=== PATIENT | male | born 1980 | race Caucasian/White ===

== ENCOUNTER 2017-01-06 13:55 | Emergency (ER) | payer SELFPAY ==
[2017-01-06 13:57] VITALS: BP 135/67; PULSE 74; RESP 15; TEMP 97.9; O2SAT 99
--- NOTE | 2017-01-06 14:02 | PD ---
Physical Exam Date Seen by Provider: Jan 06, 2017 Time Seen by Provider: 14:00 Data Data Last Documented VS Vital Signs Date Time Temp Pulse Resp B/P Pulse Ox O2 Delivery O2 Flow Rate FiO2 01/06/17 13:57 97.9 74 15 135/67 99 MDM Supervised Visit with MARIA E: No Narrative Course 36 YO M requesting detox from alcohol. Patient states he drinks 20+ beers daily. Last drink within the hour. Denies medical problems. Vitals reviewed. Patient seen in triage, awaiting bed placement. Olga Day Jan 06, 2017 14:01
--- NOTE | 2017-01-06 14:55 | PD ---
HPI . Patient here requesting detox from alcohol Chief Complaint: Medical Clearance Time Seen by Provider: 14:54 Travel History International Travel<30 days: No Contact w/Intl Traveler<30days: No Traveled to known affect area: No History of Present Illness HPI 36-year-old male with no significant past medical history other than alcoholism here requesting detox. He is accompanied by his father. Patient tells me that he's been drinking heavily for the past 6-7 days and needs detox. He recently left [facility] and was told to come here because there were no beds available. He has no signs or symptoms of withdrawals. He feels very well and says he just knows that he needs to quit. PFSH Past Medical History Medical History: Denies Significant Hx Social History Alcohol Use: Yes Tobacco Use: Yes Allergies-Medications (Allergen,Severity, Reaction): Coded Allergies: No Known Allergies (Unverified , 01/06/17) Review of Systems General / Constitutional: No: Fever Eyes: No: Visual changes HENT: No: Headaches Cardiovascular: No: Chest Pain or Discomfort Respiratory: No: Shortness of Breath Gastrointestinal: No: Abdominal Pain Genitourinary: No: Dysuria Musculoskeletal: No: Pain Skin: No Rash Neurologic: No: Weakness Psychiatric: Positive: Substance Abuse, No: Depression Endocrine: No: Polydipsia Hematologic/Lymphatic: No: Easy Bruising Physical Exam Narrative GENERAL: AAO x 3, no acute distress, Well-nourished, well-developed patient. SKIN: Warm and dry. No visible rashes or bruising. HEAD: Normocephalic and atraumatic. EYES: No scleral icterus. No injection or drainage. EOM intact, PERRLA ENT: No nasal drainage noted. Mucous membranes pink. Airway patent. NECK: Supple, trachea midline. No JVD. CARDIOVASCULAR: Regular rate and rhythm without murmurs, gallops, or rubs. RESPIRATORY: Breath sounds equal bilaterally. No accessory muscle use. No rhonchi or rales. GASTROINTESTINAL: Abdomen soft, non-tender, nondistended. EXTREMITIES: No cyanosis or edema. Fully ambulatory BACK: No obvious deformity. 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 Data Data Last Documented VS Vital Signs Date Time Temp Pulse Resp B/P Pulse Ox O2 Delivery O2 Flow Rate FiO2 01/06/17 13:57 97.9 74 15 135/67 99 MDM Medical Decision Making Medical Screen Exam Complete: Yes Emergency Medical Condition: No Medical Record Reviewed: Yes Differential Diagnosis Alcoholism, less likely withdrawals Narrative Course A medical screening exam was performed: At the time of evaluation the presenting medical condition was determined not to be of an emergent nature. The patient was given the option of receiving additional care, but declined. Patient was given options for additional community resources from which to obtain care. The Patient Has Been advised to seek medical attention for their presenting complaint. The patient has been advised to return to the ER at any time if an emergent condition develops. I explained to patient that unfortunately we do not have a detox program here at the hospital. Patient is stable. He is ambulatory and AAOX4. He is accompanied by his father Advised him to check with [facility] again for detox or look into other community services. Diagnosis Primary Impression: Encounter for medical screening examination Condition: Stable Irma Garcia Jan 06, 2017 14:55
== END 2017-01-06 15:15 | disposition left against medical advice (07) ==
LOC: NEPD 13:55
DX: F10.10 Alcohol abuse, uncomplicated (principal); F17.290 Nicotine dependence, other tobacco product, uncomplicated
CPT/HCPCS: 99281

== ENCOUNTER 2017-01-14 09:22 | Emergency (ER) | payer MEDICAID ==
[~2017-01-14] VITALS: Ht 193 cm; Wt 102.2 kg
[2017-01-14 09:24] VITALS: BP 154/98; PULSE 62; RESP 20; TEMP 98.1; O2SAT 97
--- NOTE | 2017-01-14 09:43 | PD ---
HPI Chief Complaint: Anxiety Time Seen by Provider: 09:31 Travel History International Travel<30 days: No Contact w/Intl Traveler<30days: No Traveled to known affect area: No History of Present Illness HPI STATES HAS BEEN HAVING PALPITATIONS, FOR PAST 2 DAYS, FEELING ANXIOUS WELL, FELT CHEST PAIN (SHARP OVER LEFT CHEST, NONRAD, 5/10, NO WORSENING OR ALLEVIATING FACTORS) YESTERDAY AND GOT WORRIED ENOUGH TO COME IN BUT THE WAIT WAS TOO LONG SO HE LEFT, HE NOW RETURNS THIS MORNING WITH THE PALPITATIONS SENSATION BEING INTERMITTENT. PFSH Social History Alcohol Use: Yes Tobacco Use: Yes Allergies-Medications (Allergen,Severity, Reaction): Coded Allergies: No Known Allergies (Unverified , 01/14/17) Review of Systems Except as stated in HPI: all other systems reviewed are Neg Cardiovascular: Positive: Palpitations Psychiatric: Positive: Anxiety Physical Exam Narrative GENERAL: SKIN: Warm and dry. HEAD: Atraumatic. Normocephalic. EYES: Pupils equal and round. No scleral icterus. No injection or drainage. ENT: No nasal bleeding or discharge. Mucous membranes pink and moist. NECK: Trachea midline. No JVD. CARDIOVASCULAR: Regular rate and rhythm. RESPIRATORY: No accessory muscle use. Clear to auscultation. Breath sounds equal bilaterally. GASTROINTESTINAL: Abdomen soft, non-tender, nondistended. MUSCULOSKELETAL: Extremities without clubbing, cyanosis, or edema. No obvious deformities. NEUROLOGICAL: Awake and alert. No obvious cranial nerve deficits. Motor grossly within normal limits. Five out of 5 muscle strength in the arms and legs. Normal speech. PSYCHIATRIC: Appropriate mood and affect; insight and judgment normal. Data Data Last Documented VS Vital Signs Date Time Temp Pulse Resp B/P Pulse Ox O2 Delivery O2 Flow Rate FiO2 01/14/17 09:46 96 Room Air 01/14/17 09:30 89 20 01/14/17 09:24 98.1 154/98 Orders Electrocardiogram (01/14/17 09:37) Complete Blood Count With Diff (01/14/17 09:37) Comprehensive Metabolic Panel (01/14/17 09:37) Troponin I (01/14/17 09:37) B-Type Natriuretic Peptide (01/14/17 09:37) Prothrombin Time / Inr (Pt) (01/14/17 09:37) Act Partial Throm Time (Ptt) (01/14/17 09:37) Lipase (01/14/17 09:37) Thyroid Stimulating Hormone (01/14/17 09:37) Chest, Single Ap (01/14/17 09:37) Iv Access Insert/Monitor (01/14/17 09:37) Ecg Monitoring (01/14/17 09:37) Oximetry (01/14/17 09:37) Lorazepam Inj (Ativan Inj) (01/14/17 09:45) Labs Laboratory Tests Test 01/14/17 09:50 White Blood Count 5.2 TH/MM3 Red Blood Count 4.72 MIL/MM3 Hemoglobin 14.7 GM/DL Hematocrit 42.5 % Mean Corpuscular Volume 90.1 FL Mean Corpuscular Hemoglobin 31.2 PG Mean Corpuscular Hemoglobin 34.7 % Concent Red Cell Distribution Width 12.5 % Platelet Count 114 TH/MM3 Mean Platelet Volume 9.2 FL Neutrophils (%) (Auto) 63.8 % Lymphocytes (%) (Auto) 20.6 % Monocytes (%) (Auto) 7.0 % Eosinophils (%) (Auto) 2.7 % Basophils (%) (Auto) 5.9 % Neutrophils # (Auto) 3.3 TH/MM3 Lymphocytes # (Auto) 1.1 TH/MM3 Monocytes # (Auto) 0.4 TH/MM3 Eosinophils # (Auto) 0.1 TH/MM3 Basophils # (Auto) 0.3 TH/MM3 CBC Comment DIFF FINAL Differential Comment Prothrombin Time 11.2 SEC Prothromb Time International 1.0 RATIO Ratio Activated Partial 24.3 SEC Thromboplast Time Sodium Level 139 MEQ/L Potassium Level 3.5 MEQ/L Chloride Level 107 MEQ/L Carbon Dioxide Level 25.2 MEQ/L Anion Gap 7 MEQ/L Blood Urea Nitrogen 7 MG/DL Creatinine 1.26 MG/DL Estimat Glomerular Filtration 64 ML/MIN Rate Random Glucose 117 MG/DL Calcium Level 8.7 MG/DL Total Bilirubin 0.9 MG/DL Aspartate Amino Transf 103 U/L (AST/SGOT) Alanine Aminotransferase 162 U/L (ALT/SGPT) Alkaline Phosphatase 84 U/L Troponin I LESS THAN 0.02 NG/ML B-Type Natriuretic Peptide 13 PG/ML Total Protein 7.1 GM/DL Albumin 3.7 GM/DL Lipase 166 U/L Thyroid Stimulating Hormone 1.060 uIU/ML [address] [place] [address] Medical Decision Making Medical Screen Exam Complete: Yes Emergency Medical Condition: Yes Medical Record Reviewed: Yes Interpretation(s) NSR 62, FIRST DEGREE AV BLOCK, NO STEMI PATTERN Differential Diagnosis DYSRHYTHMIA V PALPITATIONS V CO V PULM EDEMA V PNA V ANEMIA V DEHYDRATION Narrative Course NO E/O ANEMIA/DEHYDRATIONI/PULM EDEMA/CO NOTED, ADDITIONALLY DURING TIME IN OBSERVATION NO DYSRYTHMIA NOTED ON MONITOR NOR ON EKG. PATIENT IS CURRENTLY DETOXING OFF ALCOHOL AND HAS MADE IT OUT A WEEK THUS FAR, NO HALLUCINATIONS, NO TACHYCARDIA, NO MAJOR E/O WITHDRAWAL. TO STAVE OFF WITHDRAWAL WILL D/C ON LIBRIUM OR LIBRAX Diagnosis Primary Impression: PALPITATIONS RESOLVED Patient Instructions: General Instructions Scripts Chlordiazepoxide-Clidinium (Librax)5-2.5 Mg Cap1 Cap PO TID #30 CAP Ref 0 Prov:Elvis Diamond MD 01/14/17 Disposition: 01 DISCHARGE HOME Condition: Stable Elvis Diamond MD Jan 14, 2017 09:43
[2017-01-14] MEDS ORDERED: LORazepam 2 MG/ML VIAL IV PUSH ONE (09:45)
[2017-01-14 09:46] VITALS: O2SAT 96
--- NOTE | 2017-01-14 09:55 | RADRPT ---
EXAM DATE/TIME: 01/14/2017 09:34 [facility] COMPARISON: No previous studies available for comparison. INDICATIONS : Left sided chest pain radiating down arm with shortness of breath. MEDICAL HISTORY : None. SURGICAL HISTORY : None. ENCOUNTER: Initial ACUITY: 2 days PAIN SCORE: 5/10 LOCATION: Left chest FINDINGS: A single view of the chest demonstrates the lungs to be symmetrically aerated without evidence of mas s, infiltrate or effusion. The cardiomediastinal contours are unremarkable. Osseous structures are intact. CONCLUSION: No acute disease. Ignacio Lagos MD on January 14, 2017 at 9:53 Board Certified Radiologist. This report was verified electronically.
[2017-01-14 10:04] LABS: AUTOMATED NEUTROPHIL # 3.3 TH/MM3 (1.8-7.7); BASOPHIL # 0.3 TH/MM3 (0-0.2); BASOPHIL % 5.9 % (0.0-2.0); EOSINOPHIL # 0.1 TH/MM3 (0-0.4); EOSINOPHIL % 2.7 % (0.0-4.0); HEMATOCRIT 42.5 % (39.0-51.0); HEMO FLAGS DIFF FINAL; LYMPH % 20.6 % (9.0-44.0); LYMPHOCYTE # 1.1 TH/MM3 (1.0-4.8); MEAN CELL VOLUME 90.1 FL (80.0-100.0); MEAN CORPUSCULAR HEMOGLOBIN 31.2 PG (27.0-34.0); MEAN CORPUSCULAR HGB CONC 34.7 % (32.0-36.0); NEUT % 63.8 % (16.0-70.0); PLATELET COUNT 114 TH/MM3 (150-450); RED BLOOD COUNT 4.72 MIL/MM3 (4.50-5.90); RED CELL DISTRIBUTION WIDTH 12.5 % (11.6-17.2); WHITE BLOOD COUNT 5.2 TH/MM3 (4.0-11.0)
[2017-01-14 10:14] LABS: APTT (PATIENT) 24.3 SEC (24.3-30.1); PROTHROMBIN TIME - PATIENT 11.2 SEC (9.8-11.6)
[2017-01-14 10:26] LABS: ALT (GPT) 162 U/L (12-78); ANION GAP 7 MEQ/L (5-15); AST (GOT) 103 U/L (15-37); BICARBONATE 25.2 MEQ/L (21.0-32.0); BLOOD UREA NITROGEN 7 MG/DL (7-18); CHLORIDE 107 MEQ/L (98-107); GLOMERULAR FILTRATION RATE 64 ML/MIN (>89); POTASSIUM 3.5 MEQ/L (3.5-5.1); SODIUM (NA) 139 MEQ/L (136-145)
[2017-01-14 10:35] LABS: ALKALINE PHOSPHATASE 84 U/L (45-117); TOTAL BILIRUBIN ADULT 0.9 MG/DL (0.2-1.0)
[2017-01-14] MEDS ORDERED: LIBRAX PO (10:51)
--- NOTE | 2017-01-15 16:28 | EKG ---
Date Performed: 01/14/2017 Time Performed: 09:37:04 PTAGE: 36 years EKG: Sinus rhythm WITH FIRST DEGREE AV BLOCK ABNORMAL ECG NO PREVIOUS TRACING DOCTOR: Iesha Hutchinson Interpretating Date/Time 01/15/2017 16:25:50
== END 2017-01-14 11:48 | disposition home or self-care (01) ==
LOC: NEPD 09:22
DX: R00.2 Palpitations (principal); R06.02 Shortness of breath; Z72.0 Tobacco use
CPT/HCPCS: 71010; 80053; 83690; 83880; 84443; 84484; 85025; 85610; 85730; 93005; 96374; 99285; J2060

== ENCOUNTER 2018-06-09 12:59 | Observation (INO) ==
[2018-06-09] MEDS ORDERED: Aspirin 325 MG Tablet PO ONE (13:44)
[2018-06-09 14:08] LABS: Baso % (Auto) 0.6 % (0.0-2.0); Eos % (Auto) 0.2 % (0.0-4.0); Hematocrit 48.2 % (39.0-51.0); Hemoglobin 17.5 gm/dL (13.0-17.0); Mean Corpuscular Hemoglobin 32.6 pg (27.0-34.0); Mean Corpuscular Volume 89.8 fL (80.0-100.0); Mean Platelet Volume 8.2 fL (7.0-11.0); Mono # (Auto) 0.6 th/mm3 (0.0-0.9); Mono % (Auto) 7.6 % (0.0-8.0); Neut # (Auto) 5.4 th/mm3 (1.8-7.7); Neut % (Auto) 66.6 % (16.0-70.0); Platelet Count 185 th/mm3 (150-450); Red Blood Count 5.37 mil/mm3 (4.50-5.90); Red Cell Distribution Width 13.1 % (11.6-17.2); White Blood Count 8.1 th/mm3 (4.0-11.0)
[2018-06-09 14:09] LABS: Mean Corpuscular HGB Conc 36.3 % (32.0-36.0)
--- NOTE | 2018-06-09 14:11 | ED ---
HPI General Chief Complaint: Anxiety Stated Complaint: Anxious Complaint Time Seen by Provider: 06/09/18 13:20 Source: patient and family Mode of arrival: ambulatory Limitations: no limitations History of Present Illness HPI narrative: 37-year-old male who presents to the ED for evaluation of possible anxiety. Per patient he has been dealing with stresses what he believes is anxiety for the past 2 days. Per patient he has had anxiety in the past and feels similar with exception to now he is having pain on his left side chest. Per patient he feels like there is a sensation of doom. He denies any history of heart disease or any other medical issues. He has been drinking alcohol to come to help with anxiety but states that it has not helped. He states that his pain in his chest is 3 out of 10. Per patient the pain is different. Per patient he has no history of recent travel. No urinary issues. No bowel movement issues. No fevers chills or sweats. No cough or congestion. He cannot really tell me if he has had new stressors but apparently his father is here with him and they both are concerned about his condition. Patient states that he does not drink daily but per records he has been here before for alcohol related disease. Related Data Home Medications Medication Instructions Recorded Confirmed No Known Home Medications 06/09/18 06/09/18 Allergies Allergy/AdvReac Type Severity Reaction Status Date / Time No Known Allergies Allergy Uncoded 01/14/17 09:41 Review of Systems ROS: all other systems reviewed are negative [facility] Medical History Medical History Anxiety (Acute) Surgical History Surgical History H/O left knee surgery (Acute) Social History Social History Substance History: No History of Abuse Smoking Status: Current every day smoker Tobacco Type: Cigarettes How Often Do You Have a Drink Containing Alcohol: 2 to 3 times a week Recent Travel in [facility] within the Last 8 Weeks: No Recent Out of Country Travel within the Last 8 Weeks: No Immunization History Tetanus Immunization: Unsure Exam Narrative Exam Narrative: GENERAL: Well appearing. SKIN: Focused skin assessment warm/dry. HEAD: Atraumatic. Normocephalic. EYES: Pupils equal and round. No scleral icterus. No injection or drainage. ENT: No nasal bleeding or discharge. Mucous membranes pink and moist. Tongue is midline. No uvula deviation. NECK: Trachea midline. No JVD. CARDIOVASCULAR: Regular rate and rhythm. No murmur appreciated. RESPIRATORY: No accessory muscle use. Clear to auscultation. Breath sounds equal bilaterally. GASTROINTESTINAL: Abdomen soft, non-tender, nondistended. Hepatic and splenic margins not palpable. MUSCULOSKELETAL: No obvious deformities. No clubbing. No cyanosis. No edema. Full range of motion of the upper and lower extremities bilaterally. 2+ pulses bilaterally. NEUROLOGICAL: Awake and alert. No obvious cranial nerve deficits. Motor grossly within normal limits. Normal speech. PSYCHIATRIC: Appropriate mood and affect; insight and judgment normal. Course Initial Documented Vital Signs Temperature 97.8 F 06/09/18 13:12 Pulse Rate 86 06/09/18 13:12 Respiratory Rate 22 06/09/18 13:12 Blood Pressure 153/99 H 06/09/18 13:12 Pulse Oximetry 97 06/09/18 13:12 Last Documented Vital Signs Temperature 97.8 F 06/09/18 13:12 Pulse Rate 82 06/09/18 14:26 Respiratory Rate 20 06/09/18 14:26 Blood Pressure 157/97 H 06/09/18 14:26 Pulse Oximetry 96 06/09/18 14:26 Medical Decision Making MARIA E Attestation MARIA E supervised visit: Yes Attestation: I, [-], have reviewed the advance practice practitioner's documentation and am in agreement, met with the patient face to face, made the diagnosis, and the medical decision making was done by me. *My assessment and Findings: Patient is a 37-year-old male who presents with complaint of possible anxiety and left-sided chest pain. He appears anxious but well. EKG was without acute ischemic changes. Labs are relatively unremarkable. Chest x-ray does not show acute consolidation. He has been placed in the chest pain center to rule out acute PA. [facility] Narrative Medical decision making narrative: 37-year-old male who presents to the ED for evaluation of left-sided chest pain and anxiety. Patient was properly examined and was found to have signs and symptoms which appear to be more consistent with anxiety and a typical chest pain but patient does complain of chest pain that has never had a stress test. Labs and imaging were done. Labs and imaging were essentially unremarkable at this time. Case was discussed with my attending who recommends chest pain center admission offered to the patient as he does have risk factors including being male and smoking in the past. Patient does agree with admission to chest pain center. CIWA was ordered as patient did drink alcohol and potentially has an alcohol issue. Patient understands reasons to be admitted for. Case discussed with my attending who agrees with this plan. Patient was admitted to chest pain center by me. Medical Screen Exam Complete: Yes Emergency Medical Condition: Yes Differential Diagnosis Differential Diagnosis: Chest pain versus ACS versus atypical chest pain versus anxiety versus alcohol Medical Records Medical records reviewed: Yes I reviewed the patient's medical records. Lab Data Lab results reviewed: Yes I reviewed the patient's lab results. Result diagrams: 06/09/18 13:50 06/09/18 13:50 Lab Results 06/09/18 06/09/18 Range/Units 13:50 13:50 WBC 8.1 (4.0-11.0) th/mm3 RBC 5.37 (4.50-5.90) mil/mm3 Hgb 17.5 H (13.0-17.0) gm/dL Hct 48.2 (39.0-51.0) % MCV 89.8 (80.0-100.0) fL MCH 32.6 (27.0-34.0) pg MCHC 36.3 H (32.0-36.0) % RDW 13.1 (11.6-17.2) % Plt Count 185 (150-450) th/mm3 MPV 8.2 (7.0-11.0) fL Prelim Diff (Auto) Slide review pending Neut % (Auto) 66.6 (16.0-70.0) % Lymph % (Auto) 25.0 (9.0-44.0) % [place] % (Auto) 7.6 (0.0-8.0) % Eos % (Auto) 0.2 (0.0-4.0) % Baso % (Auto) 0.6 (0.0-2.0) % Neut # (Auto) 5.4 (1.8-7.7) th/mm3 Lymph # (Auto) 2.0 (1.0-4.8) th/mm3 [place] # (Auto) 0.6 (0.0-0.9) th/mm3 Eos # (Auto) 0.0 (0.0-0.4) th/mm3 Baso # (Auto) 0.0 (0.0-0.2) th/mm3 WBC Differential . Diff Scan Auto diff confirmed Differential Comment . Sodium 138 (136-145) meq/L Potassium 3.9 (3.5-5.1) meq/L Chloride 102 (98-107) meq/L Carbon Dioxide 24.1 (21.0-32.0) meq/L Anion Gap 12 (5-15) meq/L BUN 7 (7-18) mg/dL Creatinine 1.02 (0.60-1.30) mg/dL Estimated GFR 81 L (>89) mL/min Random Glucose 90 (74-106) mg/dL Calcium 8.4 L (8.5-10.1) mg/dL Total Bilirubin 0.5 (0.2-1.0) mg/dL AST 59 H (15-37) U/L ALT 60 (12-78) U/L Alkaline Phosphatase 99 (45-117) U/L Total Creatine Kinase 159 (39-308) U/L CK-MB (CK-2) Less than 1.0 (0.5-3.6) ng/mL Troponin I Less than 0.02 L (0.02-0.05) ng/mL Total Protein 8.8 H (6.4-8.2) g/dL Albumin 4.4 (3.4-5.0) g/dL Serum Alcohol 197 H (0-5) mg/dL Imaging Data Attestation: I personally reviewed and interpreted this imaging study as follows : Radiologist's impression: Chest X-Ray 06/09/18 13:44 CONCLUSION: No acute cardiopulmonary disease. ECG Data Attestation: I personally reviewed and interpreted this ECG as follows: Interpretation: EKG shows sinus rhythm with no sign of acute ischemia or arrhythmia read by me and attending. Discharge Plan Discharge Disposition Patient Disposition: ED Admit(ED Internal Use Only) Discharge Order Discharge Orders: ED Use Only Admit Order (Routine); Ordered 06/09/18 Ordered By: Ethan Siu Discharge Details Diagnosis: Chest pain, rule out acute myocardial infarction Physicians Team ED Provider: Christiane Sullivan ED Midlevel Provider: Ethan Siu Primary Care Provider: Primary Care Physici,No Attending Provider: Sandeep Pabon Status ED Status: Admitted Observation Patient
[2018-06-09 14:13] LABS: Alanine Aminotransferase 60 U/L (12-78); Albumin 4.4 g/dL (3.4-5.0); Anion Gap 12 meq/L (5-15); Aspartate Aminotransferase 59 U/L (15-37); Blood Urea Nitrogen 7 mg/dL (7-18); Calcium 8.4 mg/dL (8.5-10.1); Carbon Dioxide 24.1 meq/L (21.0-32.0); Chloride 102 meq/L (98-107); Glomerular Filtration Rate 81 mL/min (>89); Glucose,Random 90 mg/dL (74-106); Potassium 3.9 meq/L (3.5-5.1); Sodium 138 meq/L (136-145)
[2018-06-09 14:14] LABS: Alcohol 197 mg/dL (0-5)
[2018-06-09 14:18] LABS: Alkaline Phosphatase 99 U/L (45-117); Creatine Kinase 159 U/L (39-308); Total Protein 8.8 g/dL (6.4-8.2)
--- NOTE | 2018-06-09 15:22 | XR ---
EXAM DATE: 06/09/2018 3:13 PM EST AGE/SEX: 37 years / Male INDICATIONS: Chest pain. CLINICAL DATA: This is the patient's initial encounter. Patient reports that signs and symptoms have been present for 3 days and indicates a pain score of 2/10. MEDICAL/SURGICAL HISTORY: None. None. COMPARISON: [facility] [place], CHEST SINGLE AP, 01/14/2017. . FINDINGS: The lungs are clear without infiltrate, nodule, or mass. There is no appreciable pleural effusion for technique. Heart and mediastinum are unremarkable. CONCLUSION: No acute cardiopulmonary disease. Electronically signed by: Andrew Prajapati MD Board Certified Radiologist 06/09/2018 3:21 PM EST
[2018-06-09] MEDS ORDERED: Haloperidol Inj 5 MG/ML Ampul IV.PUSH PRN (15:48)
[2018-06-09] MEDS ORDERED: Acetaminophen 500 MG Tablet PO PRN (17:35)
[2018-06-09 19:15] LABS: Creatine Kinase 155 U/L (39-308)
[2018-06-09] MEDS: LORazepam 1 MG Tablet PO PRN (20:38)
[2018-06-09 22:55] LABS: Creatine Kinase 157 U/L (39-308)
[2018-06-10 00:42] VITALS: TEMP 98.2
[2018-06-10] MEDS: LORazepam 1 MG Tablet PO PRN (01:24)
[2018-06-10 05:23] VITALS: BP 147/89; RESP 16; O2SAT 94
--- NOTE | 2018-06-10 07:33 | P.HPCA ---
History of Present Illness Primary Care Physician: No Primary Care Physician Chief Complaint: Anxiety, chest pain History of Present Illness: 37 year old male with history of anxiety and current smoker presents to ER for further evaluation of anxiety and intermittent chest pain. Onset last several weeks, became constant and more intense last 2 days. Reports increase in anxiety symptoms x2 days and became nervous after developing chest pain yesterday. Location left anterior chest. Characterized as aching with intermittent sharp, shooting pains. No radiation. No associated symptoms of dyspnea, nausea, or diaphoresis. Precipitating factors he relates to anxiety. No relieving symptoms. Endorses attempting to use alcohol to relieve anxiety the last 2 days. Denies regular drinking of alcohol, reports once weekly use not in excess. Endorses similar chest pain 1.5 years ago. Chest pain reported to be mild at this time. Requesting medication for anxiety this morning. Longstanding history of anxiety and in the past prescribed antianxiety and antidepressants. Currently does not have a primary care provider but plans on establishing with a primary care provider soon. Past cardiac testing Remote cardiac exercise testing Social history No known hypertension, hyperlipidemia, or diabetes. Current smoker 1/2-3-4 pack daily. Endorses daily alcohol use, increase the last few days. Family history Noncontributory for early onset cardiovascular disease. - Diagnosis (1) Atypical chest pain (2) Anxiety (3) Tobacco abuse (4) Alcohol use Review of Systems All other systems reviewed negative except as stated in HPI PMFSH - History History Provided By: Patient - Medical History Medical History: Medical History (Last Reviewed 06/10/18 @ 08:39 by KIM Steel) Anxiety - Surgical History Surgical History: Surgical History (Last Reviewed 06/10/18 @ 08:39 by KIM Steel) H/O left knee surgery - Family History Family History: Family History (Last Updated 06/10/18 @ 08:39 by KIM Steel) Father Type 2 diabetes mellitus - Social History I have reviewed the patient's Social History: Yes - Tobacco History Tobacco Use In Past 30 Days: Yes Smoking Status: Current every day smoker Tobacco Type: Cigarettes Packs Per Day: 0.5 - Alcohol History How Often Do You Have a Drink Containing Alcohol: 2 to 3 times a week - Substance Use History Substance History: No History of Abuse - Travel History Recent Travel in the [facility] Within the Last 8 Weeks: No Recent Travel Out of the Country Within the Last 8 Weeks: No - Immunization History Tetanus Immunization: Unsure Medications and Allergies Active Medications: Active Medications Acetaminophen (Tylenol) 500 mg PO Q4H PRN PRN Reason: HEADACHE Hydrocodone Bitart/Acetaminophen ([place] 7.5/325) 1 tab PO Q4H PRN PRN Reason: PAIN SCALE 1 TO 7 Last Admin: 06/09/18 23:22 Dose: 1 tab Flumazenil (Romazicon Inj) 0.2 mg IV.PUSH Q1M PRN PRN Reason: OVERSEDATION Haloperidol Lactate (Haldol Inj) 1 mg IV.PUSH Q15M PRN PRN Reason: for severe agitation Lorazepam (Ativan Inj) 1 mg IV.PUSH Q4H PRN PRN Reason: for CIWA 8-10 Lorazepam (Ativan Inj) 2 mg IV.PUSH Q15M PRN PRN Reason: for CIWA > 20 Lorazepam (Ativan Inj) 2 mg IV.PUSH Q1H PRN PRN Reason: for CIWA 15-20 Lorazepam (Ativan Inj) 2 mg IV.PUSH Q2H PRN PRN Reason: for CIWA 11-14 Lorazepam (Ativan) 1 mg PO Q4H PRN PRN Reason: for CIWA 8-10 Last Admin: 06/10/18 01:24 Dose: 1 mg Lorazepam (Ativan) 2 mg PO Q2H PRN PRN Reason: for CIWA 11-14 Lorazepam (Ativan) 1 mg PO ONCE ONE Stop: 06/10/18 07:32 Ondansetron HCl (Zofran Inj) 4 mg IV.PUSH Q6H PRN PRN Reason: NAUSEA Sodium Chloride (Ns Flush) 2 ml IV.FLUSH PRN PRN PRN Reason: FLUSH AFTER USING IV ACCESS Sodium Chloride (Ns Flush) 2 ml IV.FLUSH BID ABRAM Last Admin: 06/09/18 23:27 Dose: 2 ml Allergies Allergy/AdvReac Type Severity Reaction Status Date / Time No Known Allergies Allergy Uncoded 01/14/17 09:41 Home Medications Medication Instructions Recorded Confirmed Type No Known Home Medications 06/09/18 06/09/18 History Exam Vital signs: Vital Signs 06/09/18 13:12 06/09/18 13:26 06/09/18 13:44 Temperature 97.8 F Pulse Rate 86 83 82 Respiratory Rate 22 18 18 Blood Pressure 153/99 H 177/94 H 159/102 H Pulse Oximetry 97 98 96 06/09/18 14:26 06/09/18 17:50 06/09/18 20:00 Temperature Pulse Rate 82 58 L 90 Respiratory Rate 20 16 Blood Pressure 157/97 H 147/91 H Pulse Oximetry 96 97 90 L 06/10/18 00:41 06/10/18 04:00 Temperature 98.2 F 98.2 F Pulse Rate 83 83 Respiratory Rate 18 16 Blood Pressure 146/86 H 147/89 H Pulse Oximetry 90 L 94 L Intake & Output 06/09/18 06/10/18 06/10/18 18:59 06:59 18:59 Weight 122.47 kg Narrative: GENERAL: Alert WN, WD, NAD, pleasant, obese, male who appears older than stated age HEAD: NC, AT EYES: Sclera clear, conjunctiva without injection, pupils equal and round ENT: Mucous membranes pink and moist CV: RRR, without murmur, rub, gallop, no JVD, S1-S2. Chest wall nontender to palpation. RESP: Clear lungs throughout bilateral, no crackles, wheeze, rhonchi, symmetrical chest rise, nonlabored, able to speak in full sentences ABD: Soft, NT, ND, no masses, positive bowel tones EXT: Pulses +2x4, no dependent edema MS: Normal tone x4 extremities, nontender, no obvious deformities, full range of motion NEURO: Motor strength 5/5 PSYCH: A+O x3, flat affect, appropriate speech, mood, insight and judgment SKIN: Normal turgor, normal texture, no lesions, no rashes, brisk cap refill, even hair distribution, left hallux nail discolored, tattoos Results 06/09/18 13:50 06/09/18 13:50 Cardiac Enzymes 06/09/18 06/09/18 06/09/18 Range/Units 13:50 18:46 22:00 AST 59 H (15-37) U/L CK-MB (CK-2) Less than 1.0 (0.5-3.6) ng/mL Troponin I Less than 0.02 L Less than 0.02 L Less than 0.02 L (0.02-0.05) ng/mL CBC 06/09/18 Range/Units 13:50 WBC 8.1 (4.0-11.0) th/mm3 RBC 5.37 (4.50-5.90) mil/mm3 Hgb 17.5 H (13.0-17.0) gm/dL Hct 48.2 (39.0-51.0) % Plt Count 185 (150-450) th/mm3 Neut # (Auto) 5.4 (1.8-7.7) th/mm3 Lymph # (Auto) 2.0 (1.0-4.8) th/mm3 [place] # (Auto) 0.6 (0.0-0.9) th/mm3 Eos # (Auto) 0.0 (0.0-0.4) th/mm3 Baso # (Auto) 0.0 (0.0-0.2) th/mm3 Comprehensive Metabolic Panel 06/09/18 Range/Units 13:50 Sodium 138 (136-145) meq/L Potassium 3.9 (3.5-5.1) meq/L Chloride 102 (98-107) meq/L Carbon Dioxide 24.1 (21.0-32.0) meq/L BUN 7 (7-18) mg/dL Creatinine 1.02 (0.60-1.30) mg/dL Calcium 8.4 L (8.5-10.1) mg/dL AST 59 H (15-37) U/L ALT 60 (12-78) U/L Alkaline Phosphatase 99 (45-117) U/L Total Protein 8.8 H (6.4-8.2) g/dL Albumin 4.4 (3.4-5.0) g/dL - Imaging and Cardiology Imaging: Impressions Chest X-Ray 06/09/18 13:44 CONCLUSION: No acute cardiopulmonary disease. EKG interpretations - EKG EKG results cardiology: sinus rhythm, normal axis, normal QRS, normal ST/T Caprini VTE Risk Assessment Caprini VTE Risk Assessment: No/Low Risk (score <= 1) Caprini Risk Assessment Model: Point Value = 1 Point Value = 2 Point Value = 3 Point Value = 5 Age 41-60 Minor surgery BMI > 25 kg/m2 Swollen legs Varicose veins or History of unexplained or recurrent spontaneous Oral contraceptives or hormone replacement Sepsis (< 1 month) Serious lung disease, including pneumonia (< 1 month) Abnormal pulmonary function Acute myocardial infarction Congestive heart failure (< 1 month) History of inflammatory bowel disease Medical patient at bed rest Age 61-74 Arthroscopic surgery Major open surgery (> 45 min) Laparoscopic surgery (> 45 min) Malignancy Confined to bed (> 72 hours) Immobilizing plaster cast Central venous access Age >= 75 History of VTE Family history of VTE Factor V Leiden Prothrombin [id number] Lupus anticoagulant Anticardiolipin antibodies Elevated serum homocysteine Heparin-induced thrombocytopenia Other congenital or acquired thrombophilia Stroke (< 1 month) Elective arthroplasty Hip, pelvis, or leg fracture Acute spinal cord injury (< 1 month) Prophylaxis Regimen: Total Risk Factor Score Risk Level Prophylaxis Regimen 0-1 Low Early ambulation 2 Moderate Order ONE of the following: *Sequential Compression Device (SCD) *Heparin 5000 units SQ BID 3-4 Higher Order ONE of the following medications: *Heparin 5000 units SQ TID *Enoxaparin/Lovenox 40 mg SQ daily (WT < 150 kg, CrCl > 30 mL/min) *Enoxaparin/Lovenox 30 mg SQ daily (WT < 150 kg, CrCl > 10-29 mL/min) *Enoxaparin/Lovenox 30 mg SQ BID (WT < 150 kg, CrCl > 30 mL/min) AND/OR *Sequential Compression Device (SCD) 5 or more Highest Order ONE of the following medications: *Heparin 5000 units SQ TID (Preferred with Epidurals) *Enoxaparin/Lovenox 40 mg SQ daily (WT < 150 kg, CrCl > 30 mL/min) *Enoxaparin/Lovenox 30 mg SQ daily (WT < 150 kg, CrCl > 10-29 mL/min) *Enoxaparin/Lovenox 30 mg SQ BID (WT < 150 kg, CrCl > 30 mL/min) AND *Sequential Compression Device (SCD) Assessment and Plan - Assessment (1) Atypical chest pain Code(s): R07.89 - Other chest pain Status: Acute Plan: Admitted chest pain center. ACS ruled out with 3 sets of EKGs and cardiac enzymes. Seen and evaluated by Dr. Cachorro Goldstein. Proceed with exercise cardiac stress testing this morning. If unremarkable, plans are to discharge home with follow-up primary care provider. (2) Anxiety Code(s): F41.9 - Anxiety disorder, unspecified Status: Acute Plan: Ativan 1 mg p.o. x1 dose now. Encouraged him to establish with a primary care provider for follow up. Verbalized understanding and agreeable to plan of care. (3) Tobacco abuse Code(s): Z72.0 - Tobacco use Status: Chronic Plan: Strongly encouraged and stressed the importance of tobacco cessation. Instructed to quit smoking. Contact information for [facility] [place] program will be placed on discharge instructions. (4) Alcohol use Code(s): Z78.9 - Other specified health status Status: Acute Plan: Continue CIWA protocol initiated in ER. Strongly encouraged him to not use alcohol for anxiety symptoms.
[2018-06-10] MEDS ORDERED: LORazepam 1 MG Tablet PO ONE (08:00)
[2018-06-10 10:54] VITALS: PULSE 67
--- NOTE | 2018-06-10 15:56 | ECG ---
Date Performed: 06/10/2018 Time Performed: 01:44:14 PTAGE: 37 years EKG: Sinus rhythm MODERATE INTRAVENTRICULAR CONDUCTION DELAY BORDERLINE ECG NO PREVIOUS TRACING DOCTOR: Cachorro Goldstein Interpretating Date/Time 06/10/2018 15:55:10
--- NOTE | 2018-06-10 15:58 | ECG ---
Date Performed: 06/09/2018 Time Performed: 18:50:42 PTAGE: 37 years EKG: Sinus rhythm PATTERN CONSISTENT WITH PULMONARY DISEASE LEFT ANTERIOR FASCICULAR BLOCK ABNORMAL ECG PREVIOUS TRACING : 06/09/2018 13.38 Since previous tracing, no significant change noted DOCTOR: Cachorro Goldstein Interpretating Date/Time 06/10/2018 15:56:16
--- NOTE | 2018-06-10 15:59 | ECG ---
Date Performed: 06/09/2018 Time Performed: 13:38:47 PTAGE: 37 years EKG: Sinus rhythm BORDERLINE LEFT AXIS DEVIATION BORDERLINE ECG INTERPRETATION BASED ON A DEFAULT AGE OF 38 YEARS PREVIOUS TRACING : 01/14/2017 09.37 Since previous tracing, no significant change noted DOCTOR: Cachorro Goldstein Interpretating Date/Time 06/10/2018 15:57:02
--- NOTE | 2018-06-10 16:03 | TR ---
Date Performed: 06/10/2018 Time Performed: 09:34:15 DOCTOR: Cachorro Goldstein DRUG LIST: CLINICAL HISTORY: REASON FOR TEST: REASON FOR ENDING: OBSERVATION: CONCLUSION: Khadar protocol completed. Stopped sec to reaching target heart rate and leg fatigue. Maximum FA=856 Max HR Achieved=87.0% Maximum EF=948/84 Total Exercise Time=6:01. No reprod chest p ain. No st t segment changes. Rare PVC. Good exercise tolerance. Artiface during exam, lead V2 remove d briefly during exam. Recovery quick and unremarkable. COMMENTS: Patient exercised using the Khadar protocol. No electrocardiographic changes were seen to suggest ischemia. Hemodynamic response to exercise was normal. No significant arrhythmia was prese nt.
== END 2018-06-10 10:57 | disposition home or self-care (01) ==
LOC: NEDA 12:59 → NEPC 12:59 → NEDA 18:19 → NEPGCP 18:22
CPT/HCPCS: 71010; 71045; 80053; 80307; 82550; 82552; 84484; 85025; 90774; 90784; 93005; 93017; 96374; 96376; 99285; C8952; G0378; J2060